=== PATIENT | female | born 1970 | race Caucasian/White ===

== ENCOUNTER 2021-06-13 09:28 | Emergency (ER) | payer SELFPAY ==
[~2021-06-13] VITALS: Ht 162.6 cm; Wt 68.0 kg
[2021-06-13 09:30] VITALS: BP_SYST 97
[2021-06-13] MEDS ORDERED: ONDANSETRON 4 MG ODT TAB PO ONE (09:45)
[2021-06-13] MEDS ORDERED: NACL 0.9% 1,000 ML IV ONE (10:15)
[2021-06-13] MEDS ORDERED: ONDANSETRON HCL 4 MG/2 ML VIAL IVP ONE (10:15)
[2021-06-13 11:06] LABS: BASOPHILS % (AUTO) 0.1 % (0.0-2.0); EOSINOPHILS % (AUTO) 0.1 % (0.0-4.0); HEMATOCRIT 39.4 % (36-48); HEMOGLOBIN 13.1 g/dL (12.0-16.0); LYMPHOCYTES # (AUTO) 0.5 K/uL (1.0-5.5); MEAN CORPUSCULAR HEMOGLOBIN 30 pg (27-31); MEAN CORPUSCULAR HGB CONC 33 % (32-36); MEAN CORPUSCULAR VOLUME 90 fL (79.0-98.0); MONOCYTES # (AUTO) 0.2 K/uL (0.0-1.0); MONOCYTES % (AUTO) 3.7 % (1.7-9.3); NEUTROPHILS # (AUTO) 5.3 K/uL (1.8-7.7); NEUTROPHILS % (AUTO) 87.1 % (40.0-70.0); PLATELET COUNT (AUTO) 307 K/uL (130-430); RED BLOOD CELL COUNT(AUTO) 4.38 MIL/uL (4.2-6.2); RED CELL DISTRIBUTION WIDTH 13.2 % (9.0-15.0); WHITE BLOOD COUNT (AUTO) 6.1 K/uL (4.8-10.8)
[2021-06-13 11:24] LABS: CALCIUM 8.6 mg/dL (8.4-11.0); CREATININE 0.73 mg/dL (0.55-1.30); POTASSIUM 3.4 mmol/L (3.5-5.1)
[2021-06-13 11:31] LABS: ALBUMIN 3.5 g/dL (3.4-4.8); TOTAL BILIRUBIN 0.4 mg/dL (0.0-1.0)
[2021-06-13] MEDS ORDERED: HYDR-3917 PO (12:04)
[2021-06-13] MEDS ORDERED: ONDA-8 TL (12:04)
[2021-06-13 12:34] VITALS: BP_SYST 97
[2021-06-13 12:49] LABS: C-REACTIVE PROTEIN QUANT 5.5 mg/dL (0-0.5)
== END 2021-06-13 12:34 | disposition home or self-care (01) ==
LOC: SED 09:28
DX: A05.9 Bacterial foodborne intoxication, unspecified (principal)
CPT/HCPCS: 36415; 74176; 76376; 80053; 82150; 83615; 83690; 84484; 84703; 85025; 86140; 96361; 96374; 99284; J2405; J7030; Q0162

== ENCOUNTER 2021-08-17 12:10 | Emergency (ER) | payer OTHER ==
[~2021-08-17] VITALS: Ht 160 cm; Wt 72.1 kg
[~2021-08-17 12:10] MED LIST: HYDR-3917 PO; ONDA-8 TL
[2021-08-17 12:28] VITALS: BP_SYST 114
--- NOTE | 2021-08-17 12:32 | NUR ---
Triaged pt and placed pt in waiting room until bed becomes available. Pt is A&Ox4. Skin intact. Pt c/o blood in her stool since 2am accompanied with abdominal pain 10/10 and fatigue. VSS. NKA. No known medical conditions. Had a Hysterectomy years ago. No chest pain and no sob. Denies n/v.
--- NOTE | 2021-08-17 13:08 | NUR ---
Patient to ER bed 7 to gown for evaluation. Side rails up. Report given to Alberta RAYMOND.
--- NOTE | 2021-08-17 13:10 | NUR ---
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
--- NOTE | 2021-08-17 13:11 | NUR ---
ER at bedside examining patient.
--- NOTE | 2021-08-17 13:23 | NUR ---
# 20 gauge angiocath placed to left AC. Use of asceptic technique. Opsite placed over site. Blood return noted. Flushed with 10 cc of normal saline. No evidence of infiltration noted. Patient tolerated well.
[2021-08-17 13:27] LABS: BASOPHILS % (AUTO) 0.3 % (0.0-2.0); EOSINOPHILS % (AUTO) 0.7 % (0.0-4.0); HEMATOCRIT 39.3 % (36-48); HEMOGLOBIN 13.3 g/dL (12.0-16.0); LYMPHOCYTES # (AUTO) 1.9 K/uL (1.0-5.5); LYMPHOCYTES % (AUTO) 28.9 % (20.5-51.5); MEAN CORPUSCULAR HEMOGLOBIN 31 pg (27-31); MEAN CORPUSCULAR HGB CONC 34 % (32-36); MEAN CORPUSCULAR VOLUME 90 fL (79.0-98.0); MONOCYTES # (AUTO) 0.3 K/uL (0.0-1.0); NEUTROPHILS # (AUTO) 4.3 K/uL (1.8-7.7); NEUTROPHILS % (AUTO) 65.1 % (40.0-70.0); PLATELET COUNT (AUTO) 319 K/uL (130-430); RED BLOOD CELL COUNT(AUTO) 4.36 MIL/uL (4.2-6.2); RED CELL DISTRIBUTION WIDTH 13.2 % (9.0-15.0); WHITE BLOOD COUNT (AUTO) 6.7 K/uL (4.8-10.8)
[2021-08-17 13:35] LABS: CALCIUM 8.5 mg/dL (8.4-11.0); CREATININE 0.9 mg/dL (0.55-1.30); POTASSIUM 3.6 mmol/L (3.5-5.1)
--- NOTE | 2021-08-17 13:41 | NUR ---
Pt c/o pain 10/10 sharp and consistant pain to abdomen . Notified MD Guerra
[2021-08-17 13:49] LABS: ALBUMIN 3.7 g/dL (3.4-4.8); PROTHROMBIN TIME 10.4 SECS (9.5-12.5); TOTAL BILIRUBIN 0.3 mg/dL (0.0-1.0)
[2021-08-17] MEDS: fentaNYL CITRATE/PF 100 MCG/2 ML AMP IVP ONE (15:35)
[2021-08-17] MEDS: NACL 0.9% 1,000 ML IV ONE (16:42)
[2021-08-17] MEDS: HYDROcodone/ACETAMIN 5-325 MG TAB (NORCO/ VICODIN) PO ONE (16:48)
[2021-08-17] MEDS: MAG HYDROX/AL HYDROX/SIMETH 30 ML, DICYCLOMINE HCL 20 MG, LIDOCAINE VISCOUS 2% 15ML (PO... PO ONE ×3 (16:51)
[2021-08-17] MEDS ORDERED: OMEP40CA20 PO (17:07)
[2021-08-17] MEDS ORDERED: HYDR-3917 PO (17:07)
[2021-08-17 17:45] VITALS: BP_SYST 93
--- NOTE | 2021-08-17 17:47 | NUR ---
Patient given written and verbal discharge instructions and verbalizes understanding. ER MD discussed with patient the results and treatment provided. Patient in stable condition. ID arm band removed. IV catheter removed intact and dressing applied, no active bleeding. Opportunity for questions provided and answered. Medication side effect fact sheet provided.
== END 2021-08-17 17:47 | disposition home or self-care (01) ==
LOC: SED 12:10
DX: K92.2 Gastrointestinal hemorrhage, unspecified (principal); Z79.899 Other long term (current) drug therapy
CPT/HCPCS: 36415; 74176; 76376; 80053; 82150; 83605; 83690; 85025; 85610; 85730; 86886; 86900; 86901; 96361; 96374; 99284; J2001; J3010; J7030